=== PATIENT | male | born 1960 | race Caucasian/White ===

== ENCOUNTER 2019-11-09 21:16 | Emergency (ER) | payer BC, OTHER ==
[2019-11-09] MEDS ORDERED: Diphtheria,Pertussis(Acell),Tetanus Vaccine 0.5 ML SDV IM ONE (21:53)
--- NOTE | 2019-11-09 21:55 | EDM.PDOC ---
ED HPI GENERAL MEDICAL PROBLEM - General Chief Complaint: Laceration Stated Complaint: FISH HOOK IN FINGER Time Seen by Provider: 11/09/19 21:49 Source of Information: Reports: Patient, Family, RN Notes Reviewed History Limitations: Reports: No Limitations - History of Present Illness INITIAL COMMENTS - FREE TEXT/NARRATIVE: 59-year-old gentleman presents emergency department today with a single fishhook to his left finger - Related Data Allergies Allergy/AdvReac Type Severity Reaction Status Date / Time No Known Allergies Allergy Verified 11/09/19 21:33 Home Meds: Home Meds Cholecalciferol (Vitamin D3) [Vitamin D] 1,000 unit PO DAILY 11/09/19 [History] Past Medical History Musculoskeletal History: Reports: Fracture - Past Surgical History HEENT Surgical History: Reports: Tonsillectomy Social & Family History - Tobacco Use Smoking Status *Q: Never Smoker ED ROS GENERAL - Review of Systems Review Of Systems: See Below Skin: Reports: Wound ED EXAM, SKIN/RASH Exam: See Below Text/Narrative:: fish hook left middle finger Exam Limited By: No Limitations General Appearance: Alert, WD/WN, No Apparent Distress ED SKIN PROCEDURES - Additional/Other Procedure(s) Other (Free Text) Procedure(s): Preoperative diagnosis pressure left middle finger Postoperative diagnosis same Surgeon Marcial Officer, Verbal consent was obtained prior to procedure risks and benefits were discussed patient is in agreement and wishes to proceed. Anesthesia 1 cc lidocaine 1% without epinephrine for digital block Estimated blood loss minimal Specimens single barbed fishhook Summary procedure: Timeout was performed prior to initiation procedure identified correct site, correct patient and correct procedure. 18-gauge needle was used in this procedure after adequate anesthesia the border of the 18-gauge needle was slipped over the nkechi of the fishhook and then backed out Complications none apparent Disposition wound was cleaned dressed with bacitracin discharged home Course - Vital Signs Last Recorded V/S: Last Vital Signs Temp 96.7 F L 11/09/19 21:37 Pulse 38 L 11/09/19 21:37 Resp 16 11/09/19 21:37 BP 124/65 11/09/19 21:37 Pulse Ox 99 11/09/19 21:37 - Orders/Labs/Meds Orders: Active Orders 24 hr Category Date Time Status Vaccines to be Administered [RC] PER UNIT ROUTINE Care 11/09/19 21:53 Active Bacitracin [Bacitracin Oint 1 GM] Med 11/09/19 22:19 Once 1 dose TOP ONETIME ONE Meds: Medications Discontinued Medications Generic Name Dose Route Start Last Admin Trade Name Yg PRN Reason Stop Dose Admin Diphtheria/Tetanus/Acell Pertussis 0.5 ml 11/09/19 21:53 11/09/19 22:07 Adacel IM 11/09/19 21:54 0.5 ml .ONCE ONE Administration Lidocaine HCl 5 ml 11/09/19 21:53 11/09/19 22:07 Xylocaine-Mpf 1% INJECT 11/09/19 21:54 5 ml ONETIME ONE Administration Departure - Departure Time of Disposition: 22:21 Disposition: Home, Self-Care 01 Condition: Fair Clinical Impression: Fish hook injury of left middle finger Qualifiers: Encounter type: initial encounter Qualified Code(s): S69.92XA - Unspecified injury of left wrist, hand and finger(s), initial encounter - Discharge Information Instructions: Laceration Care, Adult, [id number] Referrals: PCP,None [Primary Care Provider] - Forms: ED Department Discharge Additional Instructions: Follow-up with primary care as needed Sepsis Event Note (ED) - Evaluation Sepsis Screening Result: No Definite Risk - Focused Exam Vital Signs: Vital Signs Temp Pulse Resp BP Pulse Ox 11/09/19 21:37 96.7 F L 38 L 16 124/65 99 11/09/19 21:33 96.7 F L 38 L 16 124/65 99 - My Orders Last 24 Hours: My Active Orders 11/09/19 21:53 Vaccines to be Administered [RC] PER UNIT ROUTINE 11/09/19 22:19 Bacitracin [Bacitracin Oint 1 GM] 1 dose TOP ONETIME ONE - Assessment/Plan Last 24 Hours: My Active Orders 11/09/19 21:53 Vaccines to be Administered [RC] PER UNIT ROUTINE 11/09/19 22:19 Bacitracin [Bacitracin Oint 1 GM] 1 dose TOP ONETIME ONE Plan: Assessment Acuity = acute Site and laterality = fishhook left middle finger Etiology = single nkechi Manifestations = none Location of injury = Home Lab values = none Plan Follow-up primary care as needed This note was dictated using [employer] voice recognition software please call with any questions on syntax or grammar.
[2019-11-09] MEDS ORDERED: Bacitracin Oint 1 GM U/D Packet TOP ONE (22:19)
== END 2019-11-09 22:40 | disposition home or self-care (01) ==
LOC: JP.ED 21:16
DX: S60.453A Superficial foreign body of left middle finger, initial encounter (principal); Z23 Encounter for immunization; W45.8XXA Other foreign body or object entering through skin, initial encounter
CPT/HCPCS: 64450; 90471; 90715; 99283; J2001